=== PATIENT | male | born 1985 | race Caucasian/White ===

== ENCOUNTER 2018-04-01 23:38 | Inpatient (IN) | payer SELFPAY ==
[2018-04-01 23:45] VITALS: BMI 33.9
[2018-04-02] MEDS ORDERED: ONDANSETRON 4 MG/2 ML VIAL IVPUSH ONE (00:01)
[2018-04-02] MEDS ORDERED: morphine CARPU-JECT 4 MG/1 ML DISP.SYRIN IVPUSH ONE (00:07)
[2018-04-02] MEDS ORDERED: SODIUM CHLORIDE 1,000 ML IV STA (00:08)
--- NOTE | 2018-04-02 00:08 | PDOC ---
Attending Attestation - HPI HPI: 04/02/18 00:41 The patient is a 32 year old male with a past medical history of kidney stone ( 8 years ago) who presents to the emergency department for evaluation of abdominal pain. The patient reports a 3 day history left lower quadrant abdominal pain. He describes the pain as intermittent and moderate in nature. Pt reports associated symptoms of fever, nausea, and vomiting. Of note, the patient states the pain feels reminiscent of prior kidney stone pain prompting him to visit our facility for further evaluation. The patient denies history of abdominal surgery, chest pain, shortness of breath , and headache. Denies chills, diarrhea, and constipation. Denies urinary urgency/frequency, dysuria, and hematuria. Allergies: NKDA Social History: Former smoker. No reported alcohol or drug use. Surgical History: Denies. <HankrashaadTravis - Last Filed: 04/02/18 00:41> - Resident Resident Name: Serafin Ashby - ED Attending Attestation I have performed the following: I have examined & evaluated the patient, The case was reviewed & discussed with the resident, I agree w/resident's findings & plan, Exceptions are as noted - Physicial Exam PE: 04/02/18 02:30 Physical Exam General Appearance: Yes: Appropriately Dressed. No: Apparent Distress, Intoxicated HEENT: positive: EOMI, THEODORE, Normal ENT Inspection, Normal Voice, TMs Normal, Pharynx Normal. negative: Pale Conjunctivae, Photophobia, Scleral Icterus (R), Scleral Icterus (L) Neck: positive: Trachea midline, Normal Thyroid, Supple. negative: Tender, Rigid, Carotid bruit, Stridor, Lymphadenopathy (R), Lymphadenopathy (L), Thyromegaly Respiratory/Chest: positive: Lungs Clear, Normal Breath Sounds. negative: Chest Tender, Respiratory Distress, Accessory Muscle Use, Labored Respiration, RES, Crackles, Rales, Rhonchi, Stridor, Wheezing, Dullness Cardiovascular: positive: Regular Rhythm, Regular Rate, S1, S2. negative: Edema , JVD, Murmur, Bradycardia, Tachycardia Vascular Pulses: Dorsalis-Pedis (R): 2+, Doralis-Pedis (L): 2+ Gastrointestinal/Abdominal: positive: Normal Bowel Sounds, Flat, Soft. LLQ tenderness negative: Organomegaly, Pulsatile Mass, Increased Bowel Sounds, Decreased BS, Distended, Guarding, Rebound, Hernia, Hepatomegaly, Spleenomegaly Lymphatic: negative: Adenopathy, Tenderness Musculoskeletal: positive: Normal Inspection. negative: CVA Tenderness, Decreased Range of Motion Extremity: positive: Normal Capillary Refill, Normal Inspection, Normal Range of Motion, Pelvis Stable. negative: Tender, Pedal Edema, Swelling, Erythema Integumentary: positive: Normal Color, Dry, Warm. negative: Cyanotic, Erythema , Jaundice, Rash Neurologic: positive: bridge construction inspector II-XII NML intact, Fully Oriented, Alert, Normal Mood/ Affect, Motor Strength 5/5. negative: EOM Palsy, Facial Droop, Sensory Deficit - Medical Decision Making 04/02/18 02:31 Pt to be admitted for further treatment. <Lauro Mcadams - Last Filed: 04/02/18 02:34> Attestations - Attestations Documentation prepared by Travis Brady, acting as medical management trainer for Lauro Mcadams DO. <Travis Brady - Last Filed: 04/02/18 00:41>
[2018-04-02 00:31] LABS: HEMATOCRIT 46.3 % (35.4-49); HEMOGLOBIN 15.5 GM/dL (11.7-16.9); MCH 29.8 pg (25.7-33.7); MCHC 33.4 g/dl (32.0-35.9); MEAN CELL VOLUME 89.1 fl (80-96); MEAN PLT VOLUME 8.7 fl (7.5-11.1); PLATELET COUNT 280 K/MM3 (134-434); RBC 5.19 M/mm3 (4.00-5.60); RDW 14.1 % (11.9-15.9); WHITE BLOOD COUNT 15.5 K/mm3 (4.0-10.0)
--- NOTE | 2018-04-02 00:32 | PDOC ---
History of Present Illness - General Chief Complaint: Pain, Acute Stated Complaint: PAIN, ACUTE Time Seen by Provider: 04/01/18 23:59 History Source: Patient Exam Limitations: No Limitations - History of Present Illness Initial Comments: 04/02/18 00:28 Patient is a 32M with history of nephrolithiasis 8 years ago here today complaining of 3 days of left lower quadrant abdominal pain. He endorses associated fever, vomiting. Denies pain with urination. Denies prior surgical history. He states that this pain is like his prior kidney stone pain. He describes the pain as intermittent and worsening today. Past History - Past Medical History Allergies/Adverse Reactions: Allergies Allergy/AdvReac Type Severity Reaction Status Date / Time No Known Allergies Allergy Verified 04/01/18 23:44 COPD: No - Suicide/Smoking/Psychosocial Hx Smoking History: Former smoker Have you smoked in the past 12 months: No Information on smoking cessation initiated: No Review of Systems - Review of Systems Comments:: 04/02/18 00:32 GENERAL/CONSTITUTIONAL: No fever or chills. No weakness. HEAD, EYES, EARS, NOSE AND THROAT: No change in vision. No sore throat. CARDIOVASCULAR: No chest pain or shortness of breath RESPIRATORY: No cough, wheezing, or hemoptysis. GASTROINTESTINAL: +nausea, vomiting. No diarrhea or constipation. GENITOURINARY: No dysuria, frequency, or change in urination. MUSCULOSKELETAL: No joint or muscle swelling or pain. No neck or back pain. SKIN: No rash NEUROLOGIC: No headache, vertigo, loss of consciousness, or change in strength/ sensation. ENDOCRINE: No increased thirst. No abnormal weight change HEMATOLOGIC/LYMPHATIC: No anemia, easy bleeding, or history of blood clots. ALLERGIC/IMMUNOLOGIC: No hives or skin allergy. *Physical Exam - Vital Signs Last Vital Signs Temp Pulse Resp BP Pulse Ox 99.0 F 72 18 123/61 97 04/01/18 23:42 04/01/18 23:42 04/01/18 23:42 04/01/18 23:42 04/01/18 23:42 - Physical Exam Comments: 04/02/18 00:33 GENERAL: Awake, alert, and fully oriented, holding still in bed HEAD: No signs of trauma, normocephalic, atraumatic EYES: PERRLA, EOMI, sclera anicteric, conjunctiva clear ENT: Auricles normal inspection, hearing grossly normal, nares patent, oropharynx clear without exudates. Moist mucosa NECK: Normal ROM, supple, no lymphadenopathy, JVD, or masses LUNGS: No distress, speaks full sentences, clear to auscultation bilaterally HEART: Regular rate and rhythm, normal S1 and S2, no murmurs, rubs or gallops, peripheral pulses normal and equal bilaterally. ABDOMEN: +suprapubic tenderness, +L CVA tenderness, +LLQ tenderness EXTREMITIES: Normal inspection, Normal range of motion, no edema. No clubbing or cyanosis. NEUROLOGICAL: Cranial nerves II through XII grossly intact. Normal speech, no focal sensorimotor deficits SKIN: Warm, Dry, normal turgor, no rashes or lesions noted. ED Treatment Course - LABORATORY CBC & Chemistry Diagram: 04/02/18 00:23 04/02/18 00:27 - RADIOLOGY Radiology Studies Ordered: Category Date Time Status ABDOMEN & PELVIS CT WITH CONTR [CT] Stat CT Scan 04/02/18 00:26 Ordered Medical Decision Making - Medical Decision Making 04/02/18 00:34 Patient is 32M with history of nephrolithiasis here today complaining of abdominal pain. Vital signs stable and normal. DDx includes, but is not limited to: diverticulitis, nephrolithiasis, pyelo. Will evaluate with abdominal labs and CT abd/pelvis. Will treat with fluids, zofran and morphine. 04/02/18 02:32 Laboratory Tests 04/02/18 04/02/18 04/02/18 00:23 00:27 01:28 WBC 15.5 H Hgb 15.5 Plt Count 280 BUN 15 Creatinine 1.2 Urine Nitrite Negative Ur Leukocyte Esterase Negative CBC shows leukocytosis. CMP reassuring. UA normal. CT shows appendicitis without perforation. Given zosyn, d5LR. Will admit. 04/02/18 02:44 Admitted to [facility] via Dr Romero. 04/02/18 05:39 EKG shows normal sinus rhythm with sinus arrhythmia with rate of 72. No st elevations/depressions. No significant t wave abnormalities. Normal axis. Normal intervals. *DC/Admit/Observation/Transfer Diagnosis at time of Disposition: Appendicitis - Discharge Dispostion Condition at time of disposition: Stable Decision to Admit order: Yes - Referrals - Patient Instructions - Post Discharge Activity
[2018-04-02 00:45] LABS: INR 1.08 (0.82-1.09); PROTHROMBIN TIME (PATIENT) 12.2 SEC (9.7-13.0)
[2018-04-02 00:53] LABS: ALBUMIN 4.3 g/dl (3.4-5.0); ALK PHOS 57 U/L (45-117); ANION GAP 9 (8-16); BILIRUBIN,TOTAL 0.7 mg/dL (0.2-1.0); BLOOD UREA NITROGEN 15 mg/dL (7-18); CALCIUM 8.8 mg/dL (8.5-10.1); CHLORIDE 105 mmol/L (98-107); CO2 27 mmol/L (21-32); CREATININE 1.2 mg/dL (0.7-1.3); GLUCOSE,RANDOM 107 mg/dL (74-106); LIPASE 109 U/L (73-393); POTASSIUM 4.1 mmol/L (3.5-5.1); SGOT/AST 15 U/L (15-37); SGPT/ALT 27 U/L (12-78); SODIUM 141 mmol/L (136-145); TOT PROT 7.7 g/dl (6.4-8.2)
[2018-04-02] MEDS ORDERED: morphine SULFATE 4 MG/ML VIAL ONE (01:00)
[2018-04-02] MEDS ORDERED: ONDANSETRON 4 MG/2 ML VIAL ONE ×2 (01:00→13:17)
[2018-04-02 01:49] LABS: URINE APPEARANCE CLEAR; URINE BILIRUBIN NEGATIVE (<2.0 mg/dL); URINE COLOR YELLOW; URINE GLUCOSE (UA) NEGATIVE (NEGATIVE); URINE KETONE TRACE (NEGATIVE); URINE LEUK ESTERASE NEGATIVE (NEGATIVE); URINE NITRITE NEGATIVE (NEGATIVE); URINE PROTEIN NEGATIVE (NEGATIVE); URINE UROBILINOGEN NEGATIVE mg/dL (0.2-1.0)
[2018-04-02] MEDS ORDERED: DEXTROSE 5%-LACTATED RINGERS 1,000 ML IV SCH (02:45)
--- NOTE | 2018-04-02 03:43 | PN ---
Teaching Attending Note Name of Resident: Michael Mendoza ATTENDING PHYSICIAN STATEMENT I saw and evaluated the patient. I reviewed the resident's note and discussed the case with the resident. I agree with the resident's findings and plan as documented. SUBJECTIVE: Patient is a 32 year old man with a past medical history of kidney stone who presents to the ER complaining of LLQ abdominal pain for 3 days. The pain is intermittent and moderate in nature and associated with fever, nausea, and vomiting. Of note, the patient states the pain feels reminiscent of prior kidney stone pain prompting him to visit our facility for further evaluation. OBJECTIVE: Alert and in mild pain Vital Signs Period Temp Pulse Resp BP Sys/Cox Pulse Ox Last 24 Hr 99.0 F 72 18 123/61 97 HEENT: No Jaundice, eye redness or discharge, PERRLA, EOMI. Normocephalic, atraumatic. External ears are normal and hearing is grossly intact. No nasal discharge. Neck: Supple, nontender. No palpable adenopathy or thyromegaly. No JVD Chest: Good effort. Clear to auscultation and percussion. Heart: Regular. No S3, rub or murmur Abdomen: Not distended, soft, tender lower abdomen; no HSM. No rebound or guarding. Normoactive bowel sounds. Ext: Peripheral pulses intact. No leg edema. Skin: Warm and dry. No petechiae, rash or ecchymosis. Neuro: Alert. Oriented x3. CN 2-12 grossly intact. Sensation grossly intact in all four extremities and DTR are symmetric. Current Medications Generic Name Dose Route Start Last Admin Trade Name Freq PRN Reason Stop Dose Admin Dextrose/Lactated Ringer's 1,000 mls @ 100 mls/hr 04/02/18 02:45 D5-Lr - IV ASDIR PEDRO Abnormal Lab Results 04/02/18 04/02/18 04/02/18 00:23 00:27 01:28 WBC 15.5 H Random Glucose 107 H Urine Ketones Trace H ASSESSMENT AND PLAN: 1. Appendicitis - CT scan of the abdomen shows appendicitis and a small left side kidney stone. Will treat with IV Flagyl 50 mg q 8 hours and Cefazolin 2 gm q 8 hours as well as lactated ringers at 100 ml/hour. Keep him NPO and consult surgery. IV morphine 2 gm q 4 hours PRN for pain control. Upon discharge, will refer to Reed Man to do workup to identify kidney stone disease risk factor. 2. Obesity - Will provide patient all the necessary assistance, counseling and positive reinforcement to facilitate weight loss. Consult engineering program manager. 3. DVT prophylaxis - Heparin 5000u sq tid. 4. Advance directives - Full code
[2018-04-02] MEDS ORDERED: LACTATED RINGERS SOLUTION 1,000 ML IV SCH ×3 (03:45→14:00)
[2018-04-02] MEDS ORDERED: ACETAMINOPHEN 325 MG TABLET (FP) PO PRN (03:45)
[2018-04-02] MEDS ORDERED: MORPHINE SULFATE 2 MG/ML VIAL IVPUSH PRN (03:55)
[2018-04-02] MEDS ORDERED: HEPARIN NA (PORCINE) 5,000 UNITS/ML 1ML VIAL SQ SCH (04:00)
[2018-04-02] MEDS ORDERED: CEFAZOLIN 2 GM/D5W 2 GM/50 ML ML IVPB SCH (04:00)
--- NOTE | 2018-04-02 04:23 | HP ---
CHIEF COMPLAINT: abdominal pain PCP: HISTORY OF PRESENT ILLNESS: 32M w/ PMH of nephrolithiasis 8 years ago, p/w 3 days of LLQ abdominal pain, associated w/ fever, nausea and NBNB vomiting. He states that this pain is similar and reminds him of his prior kidney stone pain. He describes the pain as initially intermittent but worsening today, where it became sharp, constant 9 /10 pain and nothing made it better or worse. Denies any SOB, CP, dysuria, hematuria, blood in stools, diarrhea, sick contacts, changes in diet, or recent travel. Denies prior surgical history. ER course was notable for: (1) zofran, morphine, IV NS and D5LR (2) (3) Recent Travel: none PAST MEDICAL HISTORY: L kidney stone 8 years ago. 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 HEAD: NCAT EYES: PERRLA extraocular movements intact, sclera anicteric, conjunctiva clear. EARS, NOSE, THROAT:nares patent, oropharynx clear without exudates. MMM NECK: Normal range of motion, supple without lymphadenopathy, JVD, or masses. LUNGS: CTAB. No wheezes or crackles. No accessory muscle use. HEART: RRR normal S1 and S2 without murmur, rub or gallop. ABDOMEN: TTP LLQ and RLQ, R>L, +rovsing sign, guarding. Soft, not distended, +BS , no rebound, no masses. No hepatomegaly or splenomegaly. MUSCULOSKELETAL: Normal range of motion at all joints. No bony deformities or tenderness. No CVA tenderness. UPPER EXTREMITIES: 2+ pulses, warm, well-perfused. No cyanosis. No clubbing. No peripheral edema. LOWER EXTREMITIES: 2+ pulses, warm, well-perfused. No calf tenderness. No peripheral edema. NEUROLOGICAL: Cranial nerves II-XII intact. Normal speech. SKIN: Warm, dry, normal turgor, no rashes or lesions noted, normal capillary refill. Laboratory Results - last 24 hr 04/02/18 04/02/18 04/02/18 00:23 00:27 00:27 WBC 15.5 H RBC 5.19 Hgb 15.5 Hct 46.3 MCV 89.1 MCH 29.8 MCHC 33.4 RDW 14.1 Plt Count 280 MPV 8.7 PT with INR 12.20 INR 1.08 Sodium 141 Potassium 4.1 Chloride 105 Carbon Dioxide 27 Anion Gap 9 BUN 15 Creatinine 1.2 Creat Clearance w eGFR > 60 Random Glucose 107 H Calcium 8.8 Total Bilirubin 0.7 AST 15 ALT 27 Alkaline Phosphatase 57 Total Protein 7.7 Albumin 4.3 Lipase 109 Urine Color Urine Appearance Urine pH Ur Specific [place] Urine Protein Urine Glucose (UA) Urine Ketones Urine Blood Urine Nitrite Urine Bilirubin Urine Urobilinogen Ur Leukocyte Esterase 04/02/18 01:28 WBC RBC Hgb Hct MCV MCH MCHC RDW Plt Count MPV PT with INR INR Sodium Potassium Chloride Carbon Dioxide Anion Gap BUN Creatinine Creat Clearance w eGFR Random Glucose Calcium Total Bilirubin AST ALT Alkaline Phosphatase Total Protein Albumin Lipase Urine Color Yellow Urine Appearance Clear Urine pH 6.0 Ur Specific [place] 1.023 Urine Protein Negative Urine Glucose (UA) Negative Urine Ketones Trace H Urine Blood Negative Urine Nitrite Negative Urine Bilirubin Negative Urine Urobilinogen Negative Ur Leukocyte Esterase Negative Ucx - pending CT shows appendicitis without perforation. small L side kidney stone, non- obstructing ASSESSMENT/PLAN: 32M w/ PMH of nephrolithiasis 8 years ago, p/w 3 days of LLQ abdominal pain, associated w/ fever, nausea and NBNB vomiting. On PE was found to be TTP RLQ/LLQ , +rovsing sign, labs sig for leukocytosis. #Acute Appendicitis - CT scan of the abdomen shows appendicitis and a small left side kidney stone. -tx w/ IV Flagyl 500 mg q8h and Cefazolin 2 gm q8h -IV LR 100 ml/hour -Keep him NPO and consult surgery. -IV morphine 2 gm q 4 hours PRN for pain control. -Upon discharge, will refer to Tile Setter to do workup to identify kidney stone disease risk factor. #Obesity - -Will provide patient all the necessary assistance, counseling and positive reinforcement to facilitate weight loss. -Consult automatic punch press operator. #FEN -IV LR 100cc/hr -replete lytes as needed -NPO #DVTppx SQH 5000U tid #Dispo -admit to [facility] -likely will go for surgery mao -Full code Case discussed with attending, Dr. Merida. -Michael Mendoza MD PGY1 Visit type - Emergency Visit Emergency Visit: Yes ED Registration Date: 04/02/18 Care time: The patient presented to the Emergency Department on the above date and was hospitalized for further evaluation of their emergent condition. - New Patient This patient is new to me today: Yes Date on this admission: 04/02/18 - Critical Care Critical Care patient: No Hospitalist Screening - Colonoscopy Questionnaire Colonoscopy Questionnaire: Colonoscopy Questionnaire - Patient: 50 - 75 years old and never had a screening colonoscopy: Unknown History of colon or rectal polyps, or CA: Unknown History of IBD, Crohn's disease or UC: Unknown History of abdominal radiation therapy as a child: Unknown - Relative: 1 with colon or rectal CA, or polyps at age 60 or younger: Unknown Colon or rectal CA diagnosed at age 45 or younger: Unknown Multiple relatives with colon or rectal CA: Unknown - Outcome: Screening Result: Negative Screen
[2018-04-02] MEDS ORDERED: HEPARIN NA (PORCINE) 5,000 UNITS/ML 1ML VIAL ONE ×2 (04:50→10:11)
[2018-04-02] MEDS ORDERED: ceFAZolin SODIUM 1 GM VIAL ONE (04:51)
[2018-04-02 05:35] LABS: BASO % 0.6 % (0-2.0); EOS % 0.1 % (0-4.5); HEMATOCRIT 38.6 % (35.4-49); HEMOGLOBIN 13.2 GM/dL (11.7-16.9); MCH 30.5 pg (25.7-33.7); MCHC 34.2 g/dl (32.0-35.9); MEAN CELL VOLUME 89.2 fl (80-96); MEAN PLT VOLUME 8.8 fl (7.5-11.1); MONO % 7.2 % (3.8-10.2); NEUT % 79.1 % (42.8-82.8); PLATELET COUNT 218 K/MM3 (134-434); RBC 4.33 M/mm3 (4.00-5.60); WHITE BLOOD COUNT 14.2 K/mm3 (4.0-10.0)
[2018-04-02 06:03] LABS: INR 1.17 (0.82-1.09); PROTHROMBIN TIME (PATIENT) 13.2 SEC (9.7-13.0)
[2018-04-02] MEDS ORDERED: PIPERACILLIN/TAZOB 4.5 GM 4.5 GM in DEXTROSE 5%-WATER 100 ML IVPB ONE (06:19)
[2018-04-02 06:26] LABS: ALBUMIN 3.6 g/dl (3.4-5.0); ANION GAP 7 (8-16); BLOOD UREA NITROGEN 13 mg/dL (7-18); CHLORIDE 108 mmol/L (98-107); CO2 26 mmol/L (21-32); GLUCOSE,RANDOM 98 mg/dL (74-106); PHOSPHOROUS 3.8 mg/dL (2.5-4.9); POTASSIUM 4.1 mmol/L (3.5-5.1); SODIUM 141 mmol/L (136-145)
[2018-04-02 06:29] LABS: ALK PHOS 48 U/L (45-117); BILIRUBIN,TOTAL 0.8 mg/dL (0.2-1.0); SGOT/AST 9 U/L (15-37); SGPT/ALT 22 U/L (12-78); TOT PROT 6.2 g/dl (6.4-8.2)
[2018-04-02] MEDS ORDERED: PIPERACILLIN/TAZOB 4.5 GM 4.5 GM/100 ML BAG IVPB ONE (06:56)
--- NOTE | 2018-04-02 07:56 | PN ---
Physical Exam: SUBJECTIVE: Patient seen and examined at bedside. Admits to minimal abdominal pain compared to initial presentation. Denies fever/chill, nausea/vomiting. Denies pain during urination or hematuria. Denies c/d or blood in stool. OBJECTIVE: Vital Signs Period Temp Pulse Resp BP Sys/Cox Pulse Ox Last 24 Hr 99.0 F 72 18 123/61 97 GENERAL: NAD. AAOx3. HEENT: NC/AT. Moist mucus membranes. EOMI NECK: Supple, no JVD or LAD. LUNGS: CTA B/L. No wheezes, rhonchi, rales noted. HEART: RRR. Normal S1, S2. No murmurs, rubs, or gallops noted. ABDOMEN: Soft, NT/ND, hypoactive bowel sounds in all 4Q's. No masses or abdominal bruits noted. : (-) CVA tenderness EXTREMITIES: 2+ pulses, warm, well-perfused, no edema. NEUROLOGICAL: CN II-XII intact. PSYCH: Normal mood, normal affect. SKIN: Warm, dry, normal turgor, no rashes or lesions noted Laboratory Results - last 24 hr 04/02/18 04/02/18 04/02/18 00:23 00:27 00:27 WBC 15.5 H RBC 5.19 Hgb 15.5 Hct 46.3 MCV 89.1 MCH 29.8 MCHC 33.4 RDW 14.1 Plt Count 280 MPV 8.7 Absolute Neuts (auto) Neutrophils % Lymphocytes % Monocytes % Eosinophils % Basophils % Nucleated RBC % PT with INR 12.20 INR 1.08 PTT (Actin FS) Sodium 141 Potassium 4.1 Chloride 105 Carbon Dioxide 27 Anion Gap 9 BUN 15 Creatinine 1.2 Creat Clearance w eGFR > 60 Random Glucose 107 H Calcium 8.8 Phosphorus Magnesium Total Bilirubin 0.7 AST 15 ALT 27 Alkaline Phosphatase 57 Total Protein 7.7 Albumin 4.3 Lipase 109 Urine Color Urine Appearance Urine pH Ur Specific [place] Urine Protein Urine Glucose (UA) Urine Ketones Urine Blood Urine Nitrite Urine Bilirubin Urine Urobilinogen Ur Leukocyte Esterase Blood Type Antibody Screen 04/02/18 04/02/18 04/02/18 01:28 05:22 05:22 WBC 14.2 H RBC 4.33 Hgb 13.2 Hct 38.6 D MCV 89.2 MCH 30.5 MCHC 34.2 RDW 14.0 Plt Count 218 D MPV 8.8 Absolute Neuts (auto) 11.3 Neutrophils % 79.1 Lymphocytes % 13.0 Monocytes % 7.2 Eosinophils % 0.1 Basophils % 0.6 Nucleated RBC % 0 PT with INR 13.20 H INR 1.17 H PTT (Actin FS) Sodium Potassium Chloride Carbon Dioxide Anion Gap BUN Creatinine Creat Clearance w eGFR Random Glucose Calcium Phosphorus Magnesium Total Bilirubin AST ALT Alkaline Phosphatase Total Protein Albumin Lipase Urine Color Yellow Urine Appearance Clear Urine pH 6.0 Ur Specific [place] 1.023 Urine Protein Negative Urine Glucose (UA) Negative Urine Ketones Trace H Urine Blood Negative Urine Nitrite Negative Urine Bilirubin Negative Urine Urobilinogen Negative Ur Leukocyte Esterase Negative Blood Type Antibody Screen 04/02/18 04/02/18 04/02/18 05:22 05:22 05:25 WBC RBC Hgb Hct MCV MCH MCHC RDW Plt Count MPV Absolute Neuts (auto) Neutrophils % Lymphocytes % Monocytes % Eosinophils % Basophils % Nucleated RBC % PT with INR INR PTT (Actin FS) 27.3 Sodium 141 Potassium 4.1 Chloride 108 H Carbon Dioxide 26 Anion Gap 7 L BUN 13 Creatinine 1.0 Creat Clearance w eGFR > 60 Random Glucose 98 Calcium 8.0 L Phosphorus 3.8 Magnesium 2.0 Total Bilirubin 0.8 AST 9 L D ALT 22 Alkaline Phosphatase 48 Total Protein 6.2 L Albumin 3.6 Lipase Urine Color Urine Appearance Urine pH Ur Specific [place] Urine Protein Urine Glucose (UA) Urine Ketones Urine Blood Urine Nitrite Urine Bilirubin Urine Urobilinogen Ur Leukocyte Esterase Blood Type A POSITIVE Antibody Screen Negative Active Medications Generic Name Dose Route Start Last Admin Trade Name Freq PRN Reason Stop Dose Admin Heparin Sodium (Porcine) 5,000 unit 04/02/18 04:00 04/02/18 04:11 Heparin - SQ 5,000 unit Q8H-IV PEDRO Administration Lactated Ringer's 1,000 mls @ 125 mls/hr 04/02/18 06:53 Lactated Ringers Solution IV ASDIR PEDRO Morphine Sulfate 2 mg 04/02/18 03:55 Morphine Sulfate IVPUSH Q4H PRN PAIN LEVEL 6-10 Ucx - trace ketones CT shows appendicitis without perforation. small L side kidney stone, non- obstructing ASSESSMENT/PLAN: 32M w/ PMH of nephrolithiasis 8 years ago who presents with 3 days of LLQ abdominal pain, associated w/ fever, nausea and non-bloody, non-bilious vomiting. #Acute Appendicitis - CT scan of the abdomen shows appendicitis and a small left side kidney stone. -cont Zosyn per surgery recs. -IV LR 125 cc/hour -NPO for surgery today -IV morphine 2 gm q 4 hours PRN for pain; pain currently controlled. -Upon discharge, will refer to Construction Electrician to do workup to identify kidney stone disease risk factor. #Obesity; elevated BMI 33 -Counseling for weight loss and dietary recommendations. -Consult senior talent acquisition specialist. #DVT ppx SQH 5000U TID #FEN -IV LR 125cc/hr -replete lytes as needed -NPO #Dispo -ad[facility] -surgery today -Full code Visit type - Emergency Visit Emergency Visit: Yes ED Registration Date: 04/02/18 Care time: The patient presented to the Emergency Department on the above date and was hospitalized for further evaluation of their emergent condition. - New Patient This patient is new to me today: No - Critical Care Critical Care patient: No
--- NOTE | 2018-04-02 09:22 | CONSULT ---
Consult Consult Specialty:: General Surgery Referred by:: Dr. Ashby Reason for Consultation:: acute appendicitis - History of Present Illness Chief Complaint: LLQ pain, n/v History of Present Illness: 32yo healthy, obese M with h/o left urolithiasis and no surgical history presents with 2 days of LLQ pain, initially went away overnight, then returned yesterday and was associated with n/v after dinner, prompting ER visit. He also had subjective fever yesterday, denies diarrhea or constipation, last BM yesterday evening, soft. In ER, wbc 15.5 down to 14.2 after hydration, UA with + ketones, CT showed nonobstructing left kidney stone and enlarged appendix with mild surrounding haziness c/w acute appendicitis, no abscess or perforation. He was admitted overnight to hospitalist service; surgery is consulted for OR. He has received Ancef + Flagyl, and then Zosyn. Pain is better after meds. For ER, he was tender in RLQ with referred tenderness from left, but pain was always left of midline. He is seen and examined in ER holding area. 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 denies: Chills Eyes: denies: Blurred Vision, Recent Change in Vision HENT: denies: Difficult Swallowing, Throat Pain Neck: denies: Swollen Glands, Tenderness Cardiovascular: denies: Chest Pain, Palpitations Respiratory: denies: Cough, SOB Gastrointestinal: reports: Abdominal Pain (with hpi), Nausea, Vomiting. denies : Constipation, Diarrhea Genitourinary: denies: Burning, Dysuria, Hematuria Musculoskeletal: denies: Back Pain, Joint Pain, Muscle Pain Integumentary: denies: Change in Color, Rash Neurological: denies: Dizziness, Headache Psychiatric: denies: Anxiety, Depression Physical Exam Vital Signs: Vital Signs Temperature 99.0 F 04/01/18 23:42 Pulse Rate 72 04/01/18 23:42 Respiratory Rate 18 04/01/18 23:42 Blood Pressure 123/61 04/01/18 23:42 O2 Sat by Pulse Oximetry (%) 97 04/01/18 23:42 Constitutional: Yes: No Distress, Calm, Obese Eyes: Yes: Conjunctiva Clear, EOM Intact HENT: Yes: Atraumatic, Normocephalic Neck: Yes: Supple, Trachea Midline Cardiovascular: Yes: Regular Rate and Rhythm. No: Murmur Respiratory: Yes: Regular, CTA Bilaterally Gastrointestinal: Yes: Normal Bowel Sounds, Soft, Abdomen, Obese, Tenderness ( minimal RLQ to deep palpation only, near McBurney's). No: Tenderness, Rebound, Vomiting ...Rectal Exam: Yes: Deferred Renal/: No: CVA Tenderness - Left, CVA Tenderness - Right Musculoskeletal: No: Joint Stiffness, Joint Swelling Extremities: No: Cool, Cyanosis Edema: No Peripheral Pulses WNL: Yes Integumentary: No: Jaundice, Rash Neurological: Yes: Alert, Oriented. No: Unsteady Gait Psychiatric: Yes: Alert, Oriented Labs: CBC, BMP 04/02/18 05:22 04/02/18 05:22 CMP Sodium 141 mmol/L (136-145) 04/02/18 05:22 Potassium 4.1 mmol/L (3.5-5.1) 04/02/18 05:22 Chloride 108 mmol/L (98-107) H 04/02/18 05:22 Carbon Dioxide 26 mmol/L (21-32) 04/02/18 05:22 Anion Gap 7 (8-16) L 04/02/18 05:22 BUN 13 mg/dL (7-18) 04/02/18 05:22 Creatinine 1.0 mg/dL (0.7-1.3) 04/02/18 05:22 Creat Clearance w eGFR > 60 (>60) 04/02/18 05:22 Random Glucose 98 mg/dL (74-106) 04/02/18 05:22 Calcium 8.0 mg/dL (8.5-10.1) L 04/02/18 05:22 Phosphorus 3.8 mg/dL (2.5-4.9) 04/02/18 05:22 Magnesium 2.0 mg/dL (1.8-2.4) 04/02/18 05:22 Total Bilirubin 0.8 mg/dL (0.2-1.0) 04/02/18 05:22 AST 9 U/L (15-37) L D 04/02/18 05:22 ALT 22 U/L (12-78) 04/02/18 05:22 Alkaline Phosphatase 48 U/L (45-117) 04/02/18 05:22 Total Protein 6.2 g/dl (6.4-8.2) L 04/02/18 05:22 Albumin 3.6 g/dl (3.4-5.0) 04/02/18 05:22 Lipase 109 U/L (73-393) 04/02/18 00:27 INR, PTT INR 1.17 (0.82-1.09) H 04/02/18 05:22 Urine Test Results Urine Color Yellow 04/02/18 01:28 Urine Appearance Clear 04/02/18 01:28 Urine pH 6.0 (5.0-8.0) 04/02/18 01:28 Ur Specific Universal 1.023 (1.001-1.035) 04/02/18 01:28 Urine Protein Negative (NEGATIVE) 04/02/18 01:28 Urine Glucose (UA) Negative (NEGATIVE) 04/02/18 01:28 Urine Ketones Trace (NEGATIVE) H 04/02/18 01:28 Urine Blood Negative (NEGATIVE) 04/02/18 01:28 Urine Nitrite Negative (NEGATIVE) 04/02/18 01:28 Urine Bilirubin Negative (<2.0 mg/dL) 04/02/18 01:28 Ur Leukocyte Esterase Negative (NEGATIVE) 04/02/18 01:28 Imaging - Results Cat Scan: Report Reviewed, Image Reviewed (images personally reviewed - appendix enlarged with mild surrounding inflammatory changes, no free fluid or air, no abscess) Problem List - Problems (1) Appendicitis Assessment/Plan: admitted to hospitalist service by ER NPO/IVF - generous IV hydration IV antibiotics started - ID to continue Zosyn DVT prophylaxis pain meds prn - encourage nonnarcotics Discussed with patient risks, benefits and alternatives of laparoscopic possible open appendectomy, including but not limited to bleeding, infection, injury to adjacent structures, intestinal leak or injury, intraabdominal abscess , hernia, need for further procedures, ; alternatives include antibiotics, delayed or no surgery - risks of this include failure of nonoperative therapy, perforation, sepsis, recurrence, . Patient desires to proceed with operation - will take to OR for above. Informed consent signed for same. anticipate resumption of po postoperatively d/c home when ambulating, voiding, tolerating diet, on oral pain meds (Tyl/ ibuprofen +/- oxycodone/Percocet) Code(s): K37 - UNSPECIFIED APPENDICITIS Qualifiers: Appendicitis type: acute appendicitis Acute appendicitis type: unspecified acute appendicitis type Qualified Code(s): K35.80 - Unspecified acute appendicitis (2) LLQ pain Code(s): R10.32 - LEFT LOWER QUADRANT PAIN (3) Obesity Code(s): E66.9 - OBESITY, UNSPECIFIED Qualifiers: Obesity type: due to excess calories Obesity classification: adult class 1 (BMI 30 - 34.9) Serious obesity comorbidity presence: without serious comorbidity Body mass index: BMI 33.0-33.9 Qualified Code(s): E66.09 - Other obesity due to excess calories; Z68.33 - Body mass index (BMI) 33.0-33.9, adult (4) Renal calculi Assessment/Plan: nonobstructing left kidney stone present Code(s): N20.0 - CALCULUS OF KIDNEY
[2018-04-02] MEDS ORDERED: BUPIVACAINE HCL/PF 0.5% (5MG/ML) 10 ML VIAL ONE (11:44)
[2018-04-02] MEDS ORDERED: fentaNYL CITRATE 250 MCG/5 ML VIAL ONE (11:56)
[2018-04-02] MEDS ORDERED: PROPOFOL 20 ML ONE ×2 (11:56)
[2018-04-02] MEDS ORDERED: ROCURONIUM BROMIDE 50 MG/5 ML VIAL ONE (11:57)
[2018-04-02] MEDS ORDERED: MIDAZOLAM HCL 2 MG/2 ML SINGLE DOSE VIAL ONE (11:57)
[2018-04-02] MEDS ORDERED: LIDOCAINE HCL/PF 2% SDV 5ML VIAL ONE (12:15)
[2018-04-02] MEDS ORDERED: BUPIVACAINE HCL/PF 0.5% (5MG/ML) 10 ML VIAL IJ ONE (12:19)
[2018-04-02] MEDS ORDERED: CEFOXITIN SODIUM 2 GM IVPB ONE (12:27)
[2018-04-02] MEDS ORDERED: cefOXitin SODIUM 1 GM VIAL (RESTRICTED TO ID) IVPB ONE (12:31)
[2018-04-02] MEDS ORDERED: DEXAMETHASONE SOD PHOSPHATE 4 MG/1 ML VIAL ONE (13:17)
[2018-04-02] MEDS ORDERED: NEOSTIGMINE METHYLSULFATE 0.5 MG/ML - 10 ML MDV ONE (13:18)
[2018-04-02] MEDS ORDERED: GLYCOPYRROLATE 0.2 MG/1 ML VIAL ONE (13:28)
--- NOTE | 2018-04-02 13:40 | OP ---
Operative Note - Note: Operative Date: 04/02/18 Pre-Operative Diagnosis: acute appendicitis Operation: laparoscopic appendectomy Findings: inflamed appendix Post-Operative Diagnosis: Same as Pre-op Surgeon: Glenn Vu Agricultural [employer] Specialist: Rossi Kerr Anesthesiologist/WATER PURIFIER OPERATOR: Mckenzie Schwartz Anesthesia: General, Local (20ml 0.5% marcaine) Specimens Removed: appendix to pathology Estimated Blood Loss (mls): 5 Drains, Volume Out (mls): 150 (UOP (Granger removed)) Fluid Volume Replaced (mls): 1,200 (crystalloid) Operative Report Dictated: Yes
[2018-04-02] MEDS ORDERED: ONDANSETRON 4 MG/2 ML VIAL IVPUSH PRN (13:48)
--- NOTE | 2018-04-02 14:23 | EKG ---
Test Reason : Blood Pressure : / mmHG Vent. Rate : 085 BPM Atrial Rate : 085 BPM P-R Int : 142 ms QRS Dur : 082 ms QT Int : 386 ms P-R-T Axes : 085 079 077 degrees QTc Int : 459 ms NORMAL SINUS RHYTHM NORMAL ECG NO PREVIOUS ECGS AVAILABLE Confirmed by TIFFANIE OSWALD MD ([id number]) on 04/02/2018 2:23:34 PM Referred By: PADMINI SUH Confirmed By:TIFFANIE OSWALD MD
--- NOTE | 2018-04-02 14:39 | OP ---
DATE OF OPERATION: 04/02/2018 PREOPERATIVE DIAGNOSIS: Acute appendicitis. POSTOPERATIVE DIAGNOSIS: Acute appendicitis. PROCEDURE: Laparoscopic appendectomy. SURGEON: Glenn Vu MD SKIN PILER: KISHOR BarronIII ANESTHESIA: General endotracheal and local; 20 mL of 0.5% Marcaine. ESTIMATED BLOOD LOSS: 5 mL FLUIDS: Crystalloid 1200 mL. URINE OUTPUT: 150 mL SPECIMEN: Appendix to Pathology. FINDINGS: An inflamed appendix. No fluid in the pelvis. DISPOSITION: Stable and extubated to PACU. INDICATIONS FOR PROCEDURE: Patient is a 32-year-old obese male with a history of kidney stones and no surgical history, who presented with 2 days of left lower quadrant pain which initially had gone away and then returned, associated with nausea and vomiting. In the emergency room, he was afebrile with a white count of 15.5 initially, and a CT showing an enlarged appendix with mild surrounding inflammatory changes consistent with acute appendicitis without abscess. He was admitted overnight to the hospitalist's service, started on antibiotics and IV fluids, and kept n.p.o. Initially, he was apparently tender in the right lower quadrant, but by the time he was seen by Surgery, his pain and tenderness were much improved, and his white count had only dropped to 14.2. Risks, benefits, and alternatives of laparoscopic, possible open appendectomy were discussed with the patient including, but not limited to, bleeding, infection, injury to adjacent structures, intestinal leak or injury, hernia, intra-abdominal abscess, need for further procedures were discussed. Alternatives were also discussed, inclusive of antibiotics and delayed or no surgery with attendant risks of failure of nonoperative therapy, perforation, sepsis, recurrence, and . The patient is agreeable to proceed with the operation, and informed consent has been signed. He is now brought to the operating room for this procedure. OPERATIVE TECHNIQUE: The patient was brought to the operating room and laid supine on the operating table. Sequential compression devices were applied to bilateral lower extremities, and 2 g of cefoxitin were given immediately prior to surgery as his previous dose of Zosyn had only been given 4-5 hours earlier and Ancef and Flagyl prior to that. After induction and intubation by Anesthesia, a Granger catheter was placed in the patient's bladder, which was removed at the end of the case. His abdomen had been clipped of hair in the holding area prior to entry into the operating area, and his abdomen was prepped and draped in sterile fashion. A small infraumbilical midline incision was made with a scalpel and carried into subcutaneous tissues with electrocautery until the abdominal wall fascia was identified, scored, and elevated with Willi clamps. The peritoneum was entered bluntly with the tip of a clamp and a fingertip inserted to ensure entry into the abdominal cavity and the absence of any underlying adhesions. A stay suture of 0 Vicryl was then placed in the fascia in figure-of-8 fashion for later closure, and a Tera trocar was introduced directly into the abdominal cavity and secured in place with the balloon. The abdomen was insufflated with carbon dioxide. Patient was placed in Trendelenburg position with the right side planed upward and the laparoscope inserted to inspect the abdominal cavity. Two additional 5-mm ports were placed under direct vision in the left lower quadrant and suprapubic areas. The camera was switched to the left lower quadrant port, and 2 graspers introduced through the other ports and used to gently manipulate the small bowel medially, exposing the cecum and the inflamed appendix. The distal half of the appendix had injected mucosa. It appeared more normal toward the base. A grasper was used to elevate the appendix while a [place] dissector was used to create a window at the base of the appendix where it joined the cecum, and a 45 purple load of the Endo DANIS stapler was inserted and used to transect the appendiceal base. The staple line was noted to be completely hemostatic. The mesoappendix was then gently and bluntly a bit from the adjacent mesentery of the small bowel, grasped and elevated for a 60 white load of the Endo DANIS stapler to be inserted and used to transect the first portion of the mesoappendix. It took a second white load of a 45 length to complete the transection. After which, the appendix was set aside momentarily in the right lower quadrant. Both staple lines were again inspected and noted to have no active bleeding. The pelvis was inspected for any fluid, and there was none noted to be present. Suction electrical wirer was then used to suction some bloody fluid from around the operative site only. No irrigation was undertaken. The appendix was then placed in an Endo Catch bag and retrieved from the umbilical port site. Patient was returned to neutral position. The suprapubic port was removed under direct vision and then the camera and left lower quadrant port were also removed and the abdomen exsufflated of carbon dioxide. The appendix was passed off for a pathology specimen. The fascia was closed at the umbilicus with the stay suture. Hemostasis was achieved in the port sites with electrocautery where needed, and local anesthetic was infiltrated into all 3 sites. Skin was then closed with 4-0 Vicryl subcuticular sutures including a running at the umbilicus. Benzoin and Steri-Strips were applied to the incisions and covered with dressings of gauze and Tegaderm. The Granger catheter was removed from the patient's bladder at the end of the case. Counts were correct at the end of the procedure. The patient was then awakened and extubated by Anesthesia. He was moved back to a stretcher and brought to the recovery room in stable condition, having tolerated the procedure well. Glenn Vu M.D. [id number]
[2018-04-02] MEDS ORDERED: ACETAMINOPHEN 325 MG TABLET (FP) PO SCH (15:00)
--- NOTE | 2018-04-02 15:03 | DS ---
Physical Exam: SUBJECTIVE: Patient seen and examined with no acute complaints. OBJECTIVE: Vital Signs Period Temp Pulse Resp BP Sys/Cox Pulse Ox Last 24 Hr 98.2 F-99.0 F 67-72 18-18 103-123/58-61 97-98 PHYSICAL EXAM GENERAL: AAOx3 HEENT: EOMI. Moist mucus membranes. NECK: Normal range of motion, supple without lymphadenopathy, JVD, or masses. LUNGS: CTA B/L. No wheezes, rhonchi, rales noted. HEART: RRR normal S1 and S2 without murmur, rub or gallop. ABDOMEN: Soft, minimal tenderness in RLQ, hypoactive bowel sounds. No masses or bruits noted. : -CVA tenderness MUSCULOSKELETAL: Normal range of motion at all joints. No bony deformities or tenderness. No CVA tenderness. UPPER EXTREMITIES: 2+ pulses, warm, well-perfused. No cyanosis. No clubbing. No peripheral edema. LOWER EXTREMITIES: 2+ pulses, warm, well-perfused. No calf tenderness. No peripheral edema. NEUROLOGICAL: Cranial nerves II-XII intact. Normal speech. SKIN: Warm, dry, normal turgor, no rashes or lesions noted, normal capillary refill. LABS Laboratory Results - last 24 hr 04/02/18 04/02/18 04/02/18 00:23 00:27 00:27 WBC 15.5 H RBC 5.19 Hgb 15.5 Hct 46.3 MCV 89.1 MCH 29.8 MCHC 33.4 RDW 14.1 Plt Count 280 MPV 8.7 Absolute Neuts (auto) Neutrophils % Lymphocytes % Monocytes % Eosinophils % Basophils % Nucleated RBC % PT with INR 12.20 INR 1.08 PTT (Actin FS) Sodium 141 Potassium 4.1 Chloride 105 Carbon Dioxide 27 Anion Gap 9 BUN 15 Creatinine 1.2 Creat Clearance w eGFR > 60 Random Glucose 107 H Calcium 8.8 Phosphorus Magnesium Total Bilirubin 0.7 AST 15 ALT 27 Alkaline Phosphatase 57 Total Protein 7.7 Albumin 4.3 Lipase 109 Urine Color Urine Appearance Urine pH Ur Specific [place] Urine Protein Urine Glucose (UA) Urine Ketones Urine Blood Urine Nitrite Urine Bilirubin Urine Urobilinogen Ur Leukocyte Esterase Blood Type Antibody Screen 04/02/18 04/02/18 04/02/18 01:28 05:22 05:22 WBC 14.2 H RBC 4.33 Hgb 13.2 Hct 38.6 D MCV 89.2 MCH 30.5 MCHC 34.2 RDW 14.0 Plt Count 218 D MPV 8.8 Absolute Neuts (auto) 11.3 Neutrophils % 79.1 Lymphocytes % 13.0 Monocytes % 7.2 Eosinophils % 0.1 Basophils % 0.6 Nucleated RBC % 0 PT with INR 13.20 H INR 1.17 H PTT (Actin FS) Sodium Potassium Chloride Carbon Dioxide Anion Gap BUN Creatinine Creat Clearance w eGFR Random Glucose Calcium Phosphorus Magnesium Total Bilirubin AST ALT Alkaline Phosphatase Total Protein Albumin Lipase Urine Color Yellow Urine Appearance Clear Urine pH 6.0 Ur Specific [place] 1.023 Urine Protein Negative Urine Glucose (UA) Negative Urine Ketones Trace H Urine Blood Negative Urine Nitrite Negative Urine Bilirubin Negative Urine Urobilinogen Negative Ur Leukocyte Esterase Negative Blood Type Antibody Screen 04/02/18 04/02/18 04/02/18 05:22 05:22 05:25 WBC RBC Hgb Hct MCV MCH MCHC RDW Plt Count MPV Absolute Neuts (auto) Neutrophils % Lymphocytes % Monocytes % Eosinophils % Basophils % Nucleated RBC % PT with INR INR PTT (Actin FS) 27.3 Sodium 141 Potassium 4.1 Chloride 108 H Carbon Dioxide 26 Anion Gap 7 L BUN 13 Creatinine 1.0 Creat Clearance w eGFR > 60 Random Glucose 98 Calcium 8.0 L Phosphorus 3.8 Magnesium 2.0 Total Bilirubin 0.8 AST 9 L D ALT 22 Alkaline Phosphatase 48 Total Protein 6.2 L Albumin 3.6 Lipase Urine Color Urine Appearance Urine pH Ur Specific [place] Urine Protein Urine Glucose (UA) Urine Ketones Urine Blood Urine Nitrite Urine Bilirubin Urine Urobilinogen Ur Leukocyte Esterase Blood Type A POSITIVE Antibody Screen Negative 04/02/18 08:55 WBC RBC Hgb Hct MCV MCH MCHC RDW Plt Count MPV Absolute Neuts (auto) Neutrophils % Lymphocytes % Monocytes % Eosinophils % Basophils % Nucleated RBC % PT with INR INR PTT (Actin FS) Sodium Potassium Chloride Carbon Dioxide Anion Gap BUN Creatinine Creat Clearance w eGFR Random Glucose Calcium Phosphorus Magnesium Total Bilirubin AST ALT Alkaline Phosphatase Total Protein Albumin Lipase Urine Color Urine Appearance Urine pH Ur Specific [place] Urine Protein Urine Glucose (UA) Urine Ketones Urine Blood Urine Nitrite Urine Bilirubin Urine Urobilinogen Ur Leukocyte Esterase Blood Type A POSITIVE Antibody Screen HOSPITAL COURSE: 32M w/ pmhx of nephrolithiasis 8 years ago presented with 3 days of LLQ abdominal pain, fever, nausea, and vomiting. In the ED, patient was given Zofran for nausea, morphine for pain, IVf for hydration, and kept NPO. A CT scan was done that showed appendicitis w/o perforation as well as a small non- obstructing L side kidney stone. Surgery was consulted and a laparoscopic appendectomy was performed w/o complications. Pt's symptoms improved and was discharged home the same day with instructions to take Tylenol for pain and outpatient followup with Dr. Vu in 2 weeks. He was also instructed to follow up with his permaculture contractor within 1-2 weeks. Date of Admission:04/02/18 Date of Discharge: 04/02/18 Discharge Summary Reason For Visit: APPENDICITIS Current Active Problems Appendicitis (Acute) LLQ pain (Acute) Obesity (Acute) Renal calculi (Acute) Condition: Stable - Instructions Diet, Activity, Other Instructions: Postoperative instructions: You had a laparoscopic appendectomy on 04/02/[address] Glenn Vu of [facility]. Activity: Resume your usual activities gradually, but no heavy exertion or lifting more than 10-15 pounds for 1 month. Remove dressings 48 hours after surgery; sticky tapes underneath will fall off by themselves. You may shower daily starting then, just pat the incision areas dry. No bath or swimming until skin incisions have healed. Eat lightly at first, but advance to your usual diet as tolerated. Pain: For pain, you may use and alternate Tylenol (acetaminophen) and/or ibuprofen every 6 hours each as needed; this means that you can take one OR the other at 3-hour intervals. If you are prescribed a Tylenol/narcotic combination for severe pain, use it instead of plain Tylenol as needed and switch back when your pain starts decreasing. Do not take more than 3000mg of acetaminophen in a day. Take medications as prescribed or indicated on the labeling. Follow-up: Call Dr. Vu's office at [phone] to make your postop appointment (Friday ~2 weeks after surgery). Clinic is held in the [facility] on the first floor of [facility]. Call the office if you have: * increasing pain not responsive to pain medication * fever of 101F or higher * vomiting * unusual or increasing bleeding or drainage from wounds * increasing redness or swelling at wound sites * inability to urinate Also, see your primary medical doctor within 1-2 weeks. Please follow up with your permaculture contractor within 1-2 weeks. Referrals: Glenn Vu MD [Staff Physician] - 2 Weeks (CALL FOR APPOINTMENT) Disposition: HOME - Home Medications Comprehensive Discharge Medication List: Ambulatory Orders NK [No Known Home Medication] 04/02/18
[2018-04-02] MEDS: ACETAMINOPHEN 325 MG TABLET (FP) PO SCH (15:10)
[2018-04-02] MEDS ORDERED: ACETAMINOPHEN 325 MG TABLET (FP) ONE (15:14)
[2018-04-02] MEDS ORDERED: oxyCODONE HCL 5 MG TABLET PO PRN ×2 (16:30)
--- NOTE | 2018-04-02 16:57 | PN ---
Physical Exam: SUBJECTIVE: Patient seen and examined at bedside. Admits to minimal abdominal pain, but pain controlled. Denies fever/chills, nausea/vomiting, urinary/bowel symptoms. OBJECTIVE: Vital Signs Period Temp Pulse Resp BP Sys/Cox Pulse Ox Last 24 Hr 98.2 F-99.0 F 55-85 14-18 103-143/58-84 97-100 GENERAL: Awake, alert, and fully oriented, in no acute distress. HEENT: NC/AT. EOMI. Moist mucus membranes. LUNGS: CTA B/L. No wheezes, rhonchi, rales noted. HEART: RRR, Normal S1, S2. No murmurs, rubs, gallop noted. ABDOMEN: Soft, not distended, hypoactive bowel sounds, no rebound, no masses. No hepatomegaly or splenomegaly. MUSCULOSKELETAL: Normal range of motion at all joints. No bony deformities or tenderness. No CVA tenderness. UPPER EXTREMITIES: 2+ pulses, warm, well-perfused. No cyanosis. No clubbing. No peripheral edema. LOWER EXTREMITIES: 2+ pulses, warm, well-perfused. No calf tenderness. No peripheral edema. NEUROLOGICAL: Cranial nerves II-XII intact. Normal speech. SKIN: Warm, dry, normal turgor, no rashes or lesions noted, normal capillary refill. Laboratory Results - last 24 hr 04/02/18 04/02/18 04/02/18 00:23 00:27 00:27 WBC 15.5 H RBC 5.19 Hgb 15.5 Hct 46.3 MCV 89.1 MCH 29.8 MCHC 33.4 RDW 14.1 Plt Count 280 MPV 8.7 Absolute Neuts (auto) Neutrophils % Lymphocytes % Monocytes % Eosinophils % Basophils % Nucleated RBC % PT with INR 12.20 INR 1.08 PTT (Actin FS) Sodium 141 Potassium 4.1 Chloride 105 Carbon Dioxide 27 Anion Gap 9 BUN 15 Creatinine 1.2 Creat Clearance w eGFR > 60 Random Glucose 107 H Calcium 8.8 Phosphorus Magnesium Total Bilirubin 0.7 AST 15 ALT 27 Alkaline Phosphatase 57 Total Protein 7.7 Albumin 4.3 Lipase 109 Urine Color Urine Appearance Urine pH Ur Specific [place] Urine Protein Urine Glucose (UA) Urine Ketones Urine Blood Urine Nitrite Urine Bilirubin Urine Urobilinogen Ur Leukocyte Esterase Blood Type Antibody Screen 04/02/18 04/02/18 04/02/18 01:28 05:22 05:22 WBC 14.2 H RBC 4.33 Hgb 13.2 Hct 38.6 D MCV 89.2 MCH 30.5 MCHC 34.2 RDW 14.0 Plt Count 218 D MPV 8.8 Absolute Neuts (auto) 11.3 Neutrophils % 79.1 Lymphocytes % 13.0 Monocytes % 7.2 Eosinophils % 0.1 Basophils % 0.6 Nucleated RBC % 0 PT with INR 13.20 H INR 1.17 H PTT (Actin FS) Sodium Potassium Chloride Carbon Dioxide Anion Gap BUN Creatinine Creat Clearance w eGFR Random Glucose Calcium Phosphorus Magnesium Total Bilirubin AST ALT Alkaline Phosphatase Total Protein Albumin Lipase Urine Color Yellow Urine Appearance Clear Urine pH 6.0 Ur Specific [place] 1.023 Urine Protein Negative Urine Glucose (UA) Negative Urine Ketones Trace H Urine Blood Negative Urine Nitrite Negative Urine Bilirubin Negative Urine Urobilinogen Negative Ur Leukocyte Esterase Negative Blood Type Antibody Screen 04/02/18 04/02/18 04/02/18 05:22 05:22 05:25 WBC RBC Hgb Hct MCV MCH MCHC RDW Plt Count MPV Absolute Neuts (auto) Neutrophils % Lymphocytes % Monocytes % Eosinophils % Basophils % Nucleated RBC % PT with INR INR PTT (Actin FS) 27.3 Sodium 141 Potassium 4.1 Chloride 108 H Carbon Dioxide 26 Anion Gap 7 L BUN 13 Creatinine 1.0 Creat Clearance w eGFR > 60 Random Glucose 98 Calcium 8.0 L Phosphorus 3.8 Magnesium 2.0 Total Bilirubin 0.8 AST 9 L D ALT 22 Alkaline Phosphatase 48 Total Protein 6.2 L Albumin 3.6 Lipase Urine Color Urine Appearance Urine pH Ur Specific [place] Urine Protein Urine Glucose (UA) Urine Ketones Urine Blood Urine Nitrite Urine Bilirubin Urine Urobilinogen Ur Leukocyte Esterase Blood Type A POSITIVE Antibody Screen Negative 04/02/18 08:55 WBC RBC Hgb Hct MCV MCH MCHC RDW Plt Count MPV Absolute Neuts (auto) Neutrophils % Lymphocytes % Monocytes % Eosinophils % Basophils % Nucleated RBC % PT with INR INR PTT (Actin FS) Sodium Potassium Chloride Carbon Dioxide Anion Gap BUN Creatinine Creat Clearance w eGFR Random Glucose Calcium Phosphorus Magnesium Total Bilirubin AST ALT Alkaline Phosphatase Total Protein Albumin Lipase Urine Color Urine Appearance Urine pH Ur Specific [place] Urine Protein Urine Glucose (UA) Urine Ketones Urine Blood Urine Nitrite Urine Bilirubin Urine Urobilinogen Ur Leukocyte Esterase Blood Type A POSITIVE Antibody Screen Active Medications Generic Name Dose Route Start Last Admin Trade Name Freq PRN Reason Stop Dose Admin Acetaminophen 650 mg 04/02/18 21:00 04/02/18 15:10 Tylenol - PO 650 mg Q6H PEDRO Administration Cefoxitin Sodium 2 gm/ 100 mls @ 200 mls/hr 04/02/18 20:30 Dextrose IVPB 04/02/18 20:59 ONCE ONE Protocol Lactated Ringer's 1,000 mls @ 125 mls/hr 04/02/18 15:23 Lactated Ringers Solution IV ASDIR PEDRO Ibuprofen 600 mg 04/02/18 18:00 Motrin - PO Q6H PEDRO Oxycodone HCl 5 mg 04/02/18 16:30 Roxicodone - PO Q6H PRN Pain Level 7 - 10 BREAKTHROUGH U/A - trace ketones CT shows appendicitis without perforation. small L side kidney stone, non- obstructing ASSESSMENT/PLAN: 32M w/ PMH of nephrolithiasis 8 years ago, p/w 3 days of LLQ abdominal pain, associated w/ fever, nausea and NBNB vomiting. On PE was found to be TTP RLQ/LLQ , +rovsing sign, labs significant for leukocytosis. #Acute Appendicitis - CT abd + for appendicitis and small L side kidney stone. Pt has no complaints, afebrile this AM. -IV LR 125 cc/hour -NPO for surgery -IV morphine 2 gm q 4 hours PRN for pain control. -Upon discharge, will refer to [facility] to do workup to identify kidney stone disease risk factor. #High BMI -weight loss and nutrition counseling -f/u dietitian consult #FEN -IV LR 125cc/hr -replete lytes as needed -NPO #DVTppx SQH 5000U tid #Dispo -cont to monitor on medsurg -surgery scheduled for today -Full code Visit type - Emergency Visit Emergency Visit: Yes ED Registration Date: 04/02/18 Care time: The patient presented to the Emergency Department on the above date and was hospitalized for further evaluation of their emergent condition. - New Patient This patient is new to me today: Yes Date on this admission: 04/02/18 - Critical Care Critical Care patient: No
[2018-04-02] MEDS: LACTATED RINGERS SOLUTION 1,000 ML IV SCH ×2 (17:13→21:36)
[2018-04-02] MEDS: IBUPROFEN 600 MG TABLET (FP) PO SCH (17:42)
[2018-04-02] MEDS ORDERED: IBUPROFEN 600 MG TABLET (FP) PO SCH (18:00)
--- NOTE | 2018-04-02 18:37 | CON.ID ---
Consult Consult Specialty:: infectious diseases Referred by:: Reason for Consultation:: abd pain,appendicitis - History of Present Illness Chief Complaint: abd pain History of Present Illness: 32yo healthy, obese M with h/o left urolithiasis was admitted with 2 days of LLQ pain,which initially went away overnight, then returned and was associated with n/v after dinner, prompting ER visit. He also had subjective fever yesterday, denies diarrhea or constipation, last BM yesterday evening, soft. In ER, wbc 15.5 down to 14.2 after hydration, UA with + ketones, patient was worked up in the Er and found to have nonobstructing left kidney stone and enlarged appendix with mild surrounding haziness c/w acute appendicitis patient was admitted and surgery was called for evaluation and patient waas taken to the operating room where he underwent lap appy patient currently post op with pain and bit of drowsiness but otherwise doing well - History Source History Provided By: Patient Limitations to Obtaining History: No Limitations - Past Medical History Renal/: Yes: Renal Calculi - Past Surgical History Past Surgical History: Yes: None - Alcohol/Substance Use Hx Alcohol Use: Yes (social) History of Substance Use: reports: None - Smoking History Smoking history: Former smoker (1ppd x 15 yrs) Have you smoked in the past 12 months: No If you are a former smoker, when did you quit?: 5 months ago - Social History ADL: Independent 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 Home Medications - Allergies Allergies/Adverse Reactions: Allergies Allergy/AdvReac Type Severity Reaction Status Date / Time No Known Allergies Allergy Verified 04/01/18 23:44 - Home Medications Home Medications: Ambulatory Orders NK [No Known Home Medication] 04/02/18 Review of Systems - Review of Systems Constitutional: reports: No Symptoms Eyes: reports: No Symptoms HENT: reports: No Symptoms Neck: reports: No Symptoms Cardiovascular: reports: No Symptoms Respiratory: reports: No Symptoms Gastrointestinal: reports: Abdominal Pain, Nausea Genitourinary: reports: No Symptoms Musculoskeletal: reports: No Symptoms Integumentary: reports: No Symptoms Neurological: reports: No Symptoms Endocrine: reports: No Symptoms Hematology/Lymphatic: reports: No Symptoms Psychiatric: reports: No Symptoms Physical Exam Vital Signs: Vital Signs Temperature 98.2 F 04/02/18 16:55 Pulse Rate 85 04/02/18 16:55 Respiratory Rate 18 04/02/18 16:55 Blood Pressure 110/62 04/02/18 16:55 O2 Sat by Pulse Oximetry (%) 96 04/02/18 16:40 Constitutional: Yes: Calm, Mild Distress, Obese Eyes: Yes: Conjunctiva Clear HENT: Yes: Atraumatic, Normocephalic Neck: Yes: Supple, Trachea Midline Cardiovascular: Yes: Regular Rate and Rhythm Respiratory: Yes: Regular, CTA Bilaterally Gastrointestinal: Yes: Soft, Hypoactive Bowel Sounds Musculoskeletal: Yes: WNL Extremities: Yes: WNL Wound/Incision: Yes: Clean/Dry, Dressing Dry and Intact Neurological: Yes: Alert, Oriented Psychiatric: Yes: Alert, Oriented Labs: CBC, BMP 04/02/18 05:22 04/02/18 05:22 Imaging - Results Chest X-ray: Report Reviewed, Image Reviewed Cat Scan: Report Reviewed, Image Reviewed Assessment/Plan Problem List - Problems (1) Appendicitis Code(s): K37 - UNSPECIFIED APPENDICITIS Qualifiers: Appendicitis type: acute appendicitis Acute appendicitis type: unspecified acute appendicitis type Qualified Code(s): K35.80 - Unspecified acute appendicitis (2) LLQ pain Code(s): R10.32 - LEFT LOWER QUADRANT PAIN (3) Obesity Code(s): E66.9 - OBESITY, UNSPECIFIED Qualifiers: Obesity type: due to excess calories Obesity classification: adult class 1 (BMI 30 - 34.9) Serious obesity comorbidity presence: without serious comorbidity Body mass index: BMI 33.0-33.9 Qualified Code(s): E66.09 - Other obesity due to excess calories; Z68.33 - Body mass index (BMI) 33.0-33.9, adult (4) Renal calculi Code(s): N20.0 - CALCULUS OF KIDNEY plan continue current mgmt abx can be stopped after the next dose rest as per surgical team patient stable
--- NOTE | 2018-04-02 19:47 | PN ---
Teaching Attending Note Name of Resident: Daylin Cruz ATTENDING PHYSICIAN STATEMENT I saw and evaluated the patient. I reviewed the resident's note and discussed the case with the resident. I agree with the resident's findings and plan as documented. SUBJECTIVE: s/p OR , drowsy, seen in [facility] OBJECTIVE: Vital Signs Temperature 97.7 F 04/02/18 18:00 Pulse Rate 88 04/02/18 18:00 Respiratory Rate 20 04/02/18 18:00 Blood Pressure 117/49 04/02/18 18:00 O2 Sat by Pulse Oximetry (%) 96 04/02/18 16:40 CBCD WBC 14.2 K/mm3 (4.0-10.0) H 04/02/18 05:22 RBC 4.33 M/mm3 (4.00-5.60) 04/02/18 05:22 Hgb 13.2 GM/dL (11.7-16.9) 04/02/18 05:22 Hct 38.6 % (35.4-49) D 04/02/18 05:22 MCV 89.2 fl (80-96) 04/02/18 05:22 MCHC 34.2 g/dl (32.0-35.9) 04/02/18 05:22 RDW 14.0 % (11.9-15.9) 04/02/18 05:22 Plt Count 218 K/MM3 (134-434) D 04/02/18 05:22 MPV 8.8 fl (7.5-11.1) 04/02/18 05:22 CMP Sodium 141 mmol/L (136-145) 04/02/18 05:22 Potassium 4.1 mmol/L (3.5-5.1) 04/02/18 05:22 Chloride 108 mmol/L (98-107) H 04/02/18 05:22 Carbon Dioxide 26 mmol/L (21-32) 04/02/18 05:22 Anion Gap 7 (8-16) L 04/02/18 05:22 BUN 13 mg/dL (7-18) 04/02/18 05:22 Creatinine 1.0 mg/dL (0.7-1.3) 04/02/18 05:22 Creat Clearance w eGFR > 60 (>60) 04/02/18 05:22 Random Glucose 98 mg/dL (74-106) 04/02/18 05:22 Calcium 8.0 mg/dL (8.5-10.1) L 04/02/18 05:22 Total Bilirubin 0.8 mg/dL (0.2-1.0) 04/02/18 05:22 AST 9 U/L (15-37) L D 04/02/18 05:22 ALT 22 U/L (12-78) 04/02/18 05:22 Alkaline Phosphatase 48 U/L (45-117) 04/02/18 05:22 Total Protein 6.2 g/dl (6.4-8.2) L 04/02/18 05:22 Albumin 3.6 g/dl (3.4-5.0) 04/02/18 05:22 Current Medications Generic Name Dose Route Start Last Admin Trade Name Freq PRN Reason Stop Dose Admin Acetaminophen 650 mg 04/02/18 21:00 04/02/18 15:10 Tylenol - PO 650 mg Q6H PEDRO Administration Cefoxitin Sodium 2 gm/ 100 mls @ 200 mls/hr 04/02/18 20:30 Dextrose IVPB 04/02/18 20:59 ONCE ONE Protocol Lactated Ringer's 1,000 mls @ 125 mls/hr 04/02/18 15:23 04/02/18 17:13 Lactated Ringers Solution IV Not Given ASDIR PEDRO Ibuprofen 600 mg 04/02/18 18:00 04/02/18 17:42 Motrin - PO 600 mg Q6H PEDRO Administration Oxycodone HCl 5 mg 04/02/18 16:30 Roxicodone - PO Q6H PRN Pain Level 7 - 10 BREAKTHROUGH Home Medications Medication Instructions Recorded NK [No Known Home Medication] 04/02/18 PE: per resident's note U/A - trace ketones CT : suspecious of appendicitis without perforation and abscess. small L side kidney stone, non-obstructing ASSESSMENT/PLAN: Patient is a 32M presented with RLQ pain and was found to have appendicitis. #POD#0 Acute Appendicitis - CT abdomen: appendicitis and small L side kidney stone. on IVF, soft diet as tolerated, advance diet as tolerated Pain meds, IV antibiotic, as per surgeon once tolerates diet then will discharge in am. Discussed with the surgeon in details # Obesity weight loss recommended #DVT ppx: hep. sq
[2018-04-02] MEDS ORDERED: CEFOXITIN SODIUM 2 GM in DEXTROSE 5%-WATER - 100 ML IVPB ONE (20:30)
[2018-04-02] MEDS ORDERED: PT OWN MED DRAWER 7, Y5N ONE (20:39)
[2018-04-03] MEDS: IBUPROFEN 600 MG TABLET (FP) PO SCH ×2 (00:45→05:54)
[2018-04-03] MEDS: ACETAMINOPHEN 325 MG TABLET (FP) PO SCH ×2 (03:10→08:43)
[2018-04-03] MEDS: LACTATED RINGERS SOLUTION 1,000 ML IV SCH (05:56)
[2018-04-03 06:49] LABS: HEMATOCRIT 38.3 % (35.4-49); HEMOGLOBIN 13.1 GM/dL (11.7-16.9); MCH 30.6 pg (25.7-33.7); MCHC 34.2 g/dl (32.0-35.9); MEAN CELL VOLUME 89.3 fl (80-96); MEAN PLT VOLUME 8.6 fl (7.5-11.1); PLATELET COUNT 237 K/MM3 (134-434); RBC 4.29 M/mm3 (4.00-5.60); RDW 13.8 % (11.9-15.9); WHITE BLOOD COUNT 11.7 K/mm3 (4.0-10.0)
[2018-04-03 07:21] LABS: ANION GAP 4 (8-16); BLOOD UREA NITROGEN 15 mg/dL (7-18); CALCIUM 8.5 mg/dL (8.5-10.1); CHLORIDE 105 mmol/L (98-107); CO2 31 mmol/L (21-32); CREATININE 1.1 mg/dL (0.7-1.3); GLUCOSE,RANDOM 107 mg/dL (74-106); POTASSIUM 4.1 mmol/L (3.5-5.1); SODIUM 140 mmol/L (136-145)
--- NOTE | 2018-04-03 07:47 | PN ---
Teaching Attending Note Name of Resident: Daylin Cruz ATTENDING PHYSICIAN STATEMENT I saw and evaluated the patient. I reviewed the resident's note and discussed the case with the resident. I agree with the resident's findings and plan as documented. SUBJECTIVE: Patient feels well, denies having any pain, tolerating diet well. OBJECTIVE: Vital Signs Temperature 98.7 F 04/03/18 05:57 Pulse Rate 68 04/03/18 05:57 Respiratory Rate 20 04/03/18 05:57 Blood Pressure 110/65 04/03/18 05:57 O2 Sat by Pulse Oximetry (%) 96 04/02/18 22:00 CMP Sodium 140 mmol/L (136-145) 04/03/18 06:30 Potassium 4.1 mmol/L (3.5-5.1) 04/03/18 06:30 Chloride 105 mmol/L (98-107) 04/03/18 06:30 Carbon Dioxide 31 mmol/L (21-32) 04/03/18 06:30 Anion Gap 4 (8-16) L 04/03/18 06:30 BUN 15 mg/dL (7-18) 04/03/18 06:30 Creatinine 1.1 mg/dL (0.7-1.3) 04/03/18 06:30 Creat Clearance w eGFR > 60 (>60) 04/03/18 06:30 Random Glucose 107 mg/dL (74-106) H 04/03/18 06:30 Calcium 8.5 mg/dL (8.5-10.1) 04/03/18 06:30 Phosphorus 3.8 mg/dL (2.5-4.9) 04/02/18 05:22 Magnesium 2.0 mg/dL (1.8-2.4) 04/02/18 05:22 Total Bilirubin 0.8 mg/dL (0.2-1.0) 04/02/18 05:22 AST 9 U/L (15-37) L D 04/02/18 05:22 ALT 22 U/L (12-78) 04/02/18 05:22 Alkaline Phosphatase 48 U/L (45-117) 04/02/18 05:22 Total Protein 6.2 g/dl (6.4-8.2) L 04/02/18 05:22 Albumin 3.6 g/dl (3.4-5.0) 04/02/18 05:22 Lipase 109 U/L (73-393) 04/02/18 00:27 Current Medications Generic Name Dose Route Start Last Admin Trade Name Freq PRN Reason Stop Dose Admin Acetaminophen 650 mg 04/02/18 21:00 04/03/18 03:10 Tylenol - PO Not Given Q6H PEDRO Lactated Ringer's 1,000 mls @ 125 mls/hr 04/02/18 15:23 04/03/18 05:56 Lactated Ringers Solution IV 125 mls/hr ASDIR PEDRO Administration Ibuprofen 600 mg 04/02/18 18:00 04/03/18 05:54 Motrin - PO 600 mg Q6H PEDRO Administration Oxycodone HCl 5 mg 04/02/18 16:30 Roxicodone - PO Q6H PRN Pain Level 7 - 10 BREAKTHROUGH Home Medications Medication Instructions Recorded NK [No Known Home Medication] 04/02/18 PE: per resident's note U/A - trace ketones CT : suspecious of appendicitis without perforation and abscess. small L side kidney stone, non-obstructing ASSESSMENT/PLAN: Patient is a 32M presented with RLQ pain and was found to have appendicitis. #POD#1 Acute Appendicitis -s/p Lap.api by dr vu. follow with Dr. Vu in 2 weeks. Instructions are in your discharge summary Ptient will take tylenol /motrin prn. tolerated diet well.will discharge the patient. # Obesity weight loss recommended discharge time 35minutes
--- NOTE | 2018-04-03 10:15 | DS ---
Physical Exam: SUBJECTIVE: Patient seen and examined. No acute complaints overnight. OBJECTIVE: Vital Signs Period Temp Pulse Resp BP Sys/Cox Pulse Ox Last 24 Hr 97.7 F-98.8 F 55-88 14-20 105-143/49-84 96-100 PHYSICAL EXAM GENERAL: Awake, alert, and fully oriented, in no acute distress. HEENT: NC/AT. EOMI. Moist mucus membranes. LUNGS: CTA B/L. No wheezes, rhonchi, rales noted. HEART: RRR, Normal S1, S2. No murmurs, rubs, gallop noted. ABDOMEN: Soft, not distended, hypoactive bowel sounds, no rebound, no masses. No hepatomegaly or splenomegaly. MUSCULOSKELETAL: Normal range of motion at all joints. No bony deformities or tenderness. No CVA tenderness. UPPER EXTREMITIES: 2+ pulses, warm, well-perfused. No cyanosis. No clubbing. No peripheral edema. LOWER EXTREMITIES: 2+ pulses, warm, well-perfused. No calf tenderness. No peripheral edema. NEUROLOGICAL: Cranial nerves II-XII intact. Normal speech. SKIN: Warm, dry, normal turgor, no rashes or lesions noted, normal capillary refill. LABS Laboratory Results - last 24 hr 04/02/18 04/03/18 04/03/18 08:55 06:30 06:30 WBC 11.7 H RBC 4.29 Hgb 13.1 Hct 38.3 MCV 89.3 MCH 30.6 MCHC 34.2 RDW 13.8 Plt Count 237 MPV 8.6 Sodium 140 Potassium 4.1 Chloride 105 Carbon Dioxide 31 Anion Gap 4 L BUN 15 Creatinine 1.1 Creat Clearance w eGFR > 60 Random Glucose 107 H Calcium 8.5 Blood Type A POSITIVE HOSPITAL COURSE: 32M w/ pmhx of nephrolithiasis 8 years ago presented with 3 days of LLQ abdominal pain, fever, nausea, and vomiting. In the ED, patient was given Zofran for nausea, morphine for pain, IVf for hydration, and kept NPO. A CT scan was done that showed appendicitis w/o perforation as well as a small non- obstructing L side kidney stone. Surgery was consulted and a laparoscopic appendectomy was performed w/o complications. The patient was afebrile, tolerating PO diet well, without additional symptoms. He was discharged home the next day with instructions to take Tylenol for pain and outpatient followup with Dr. Vu in 2 weeks. He was also instructed to follow up with his check cashier within 1-2 weeks. Date of Admission:04/02/18 Date of Discharge: 04/03/18 Minutes to complete discharge: 35 Discharge Summary Reason For Visit: APPENDICITIS Current Active Problems Appendicitis (Acute) LLQ pain (Acute) Obesity (Acute) Renal calculi (Acute) Condition: Improved - Instructions Diet, Activity, Other Instructions: Postoperative instructions: You had a laparoscopic appendectomy on 04/02/[address] Glenn Vu of [facility]. Activity: Resume your usual activities gradually, but no heavy exertion or lifting more than 10-15 pounds for 1 month. Remove dressings 48 hours after surgery; sticky tapes underneath will fall off by themselves. You may shower daily starting then, just pat the incision areas dry. No bath or swimming until skin incisions have healed. Eat lightly at first, but advance to your usual diet as tolerated. Pain: For pain, you may use and alternate Tylenol (acetaminophen) and/or ibuprofen every 6 hours each as needed; this means that you can take one OR the other at 3-hour intervals. If you are prescribed a Tylenol/narcotic combination for severe pain, use it instead of plain Tylenol as needed and switch back when your pain starts decreasing. Do not take more than 3000mg of acetaminophen in a day. Take medications as prescribed or indicated on the labeling. Follow-up: Call Dr. Vu's office at [phone] to make your postop appointment (Friday ~2 weeks after surgery). Clinic is held in the [facility] on the first floor of [facility]. Call the office if you have: * increasing pain not responsive to pain medication * fever of 101F or higher * vomiting * unusual or increasing bleeding or drainage from wounds * increasing redness or swelling at wound sites * inability to urinate Also, see your primary medical doctor within 1-2 weeks. Please follow up with your check cashier within 1-2 weeks. Referrals: Glenn Vu MD [Staff Physician] - 2 Weeks (CALL FOR APPOINTMENT) Disposition: HOME - Home Medications Comprehensive Discharge Medication List: Ambulatory Orders NK [No Known Home Medication] 04/02/18 This patient is new to me today: No Emergency Visit: Yes ED Registration Date: 04/02/18 Care time: The patient presented to the Emergency Department on the above date and was hospitalized for further evaluation of their emergent condition. Critical Care patient: No - Discharge Referral Referred to [facility] No
[2018-04-03 10:22] VITALS: BP 105/68; PULSE 93; TEMP 98.2
--- NOTE | 2018-04-03 11:42 | PN ---
Progress Note, Physician History of Present Illness: Pt s/p lap appy for acute appendicitis Doing well on tylenol, ibuprofen. Eaten, voided, passing gas but no BM yet Ready to go home - Current Medication List Current Medications: Active Medications Acetaminophen (Tylenol -) 650 mg PO Q6H [facility] Last Admin: 04/03/18 08:43 Dose: Not Given Lactated Ringer's (Lactated Ringers Solution) 1,000 mls @ 125 mls/hr IV ASDIR [facility] Last Admin: 04/03/18 05:56 Dose: 125 mls/hr Ibuprofen (Motrin -) 600 mg PO Q6H [facility] Last Admin: 04/03/18 05:54 Dose: 600 mg Oxycodone HCl (Roxicodone -) 5 mg PO Q6H PRN PRN Reason: Pain Level 7 - 10 BREAKTHROUGH - Objective Vital Signs: Vital Signs Temperature 98.2 F 04/03/18 09:00 Pulse Rate 93 H 04/03/18 09:00 Respiratory Rate 18 04/03/18 09:00 Blood Pressure 105/68 04/03/18 09:00 O2 Sat by Pulse Oximetry (%) 99 04/03/18 09:00 Constitutional: Yes: No Distress, Calm, Obese Eyes: Yes: Conjunctiva Clear, EOM Intact HENT: Yes: Atraumatic, Normocephalic Gastrointestinal: Yes: Soft, Abdomen, Obese, Other (incisions dressed). No: Tenderness Extremities: No: Cool, Cyanosis Integumentary: Yes: Incision (x3 dressed). No: Jaundice, Rash Wound/Incision: Yes: Steri Strips (under dressings), Dressing Dry and Intact (x3 ). No: Dressing Removed Neurological: Yes: Alert, Oriented Labs: CBC, BMP 04/03/18 06:30 04/03/18 06:30 Problem List - Problems (1) Appendicitis Assessment/Plan: POD1 s/p laparoscopic appendectomy doing well ty diet, voided, passing flatus, ambulating nonnarcotic pain meds prn - Tylenol and ibuprofen at home will f/u in 2 weeks instructions in d/c plan Code(s): K37 - UNSPECIFIED APPENDICITIS Qualifiers: Appendicitis type: acute appendicitis Acute appendicitis type: unspecified acute appendicitis type Qualified Code(s): K35.80 - Unspecified acute appendicitis (2) LLQ pain Code(s): R10.32 - LEFT LOWER QUADRANT PAIN (3) Obesity Code(s): E66.9 - OBESITY, UNSPECIFIED Qualifiers: Obesity type: due to excess calories Obesity classification: adult class 1 (BMI 30 - 34.9) Serious obesity comorbidity presence: without serious comorbidity Body mass index: BMI 33.0-33.9 Qualified Code(s): E66.09 - Other obesity due to excess calories; Z68.33 - Body mass index (BMI) 33.0-33.9, adult (4) Renal calculi Code(s): N20.0 - CALCULUS OF KIDNEY
--- NOTE | 2018-04-03 11:48 | PN ---
Progress Note, Physician History of Present Illness: patient doing well pain now under control no issues site looks good - Current Medication List Current Medications: Active Medications Acetaminophen (Tylenol -) 650 mg PO Q6H [facility] Last Admin: 04/03/18 08:43 Dose: Not Given Lactated Ringer's (Lactated Ringers Solution) 1,000 mls @ 125 mls/hr IV ASDIR [facility] Last Admin: 04/03/18 05:56 Dose: 125 mls/hr Ibuprofen (Motrin -) 600 mg PO Q6H [facility] Last Admin: 04/03/18 05:54 Dose: 600 mg Oxycodone HCl (Roxicodone -) 5 mg PO Q6H PRN PRN Reason: Pain Level 7 - 10 BREAKTHROUGH - Objective Vital Signs: Vital Signs Temperature 98.2 F 04/03/18 09:00 Pulse Rate 93 H 04/03/18 09:00 Respiratory Rate 18 04/03/18 09:00 Blood Pressure 105/68 04/03/18 09:00 O2 Sat by Pulse Oximetry (%) 99 04/03/18 09:00 Constitutional: Yes: No Distress, Calm Cardiovascular: Yes: Regular Rate and Rhythm Respiratory: Yes: Regular, CTA Bilaterally Gastrointestinal: Yes: Normal Bowel Sounds, Soft Musculoskeletal: Yes: WNL Extremities: Yes: WNL Wound/Incision: Yes: Clean/Dry, Dressing Dry and Intact Neurological: Yes: Alert, Oriented Psychiatric: Yes: Alert, Oriented Labs: CBC, BMP 04/03/18 06:30 04/03/18 06:30 INR, PTT INR 1.17 (0.82-1.09) H 04/02/18 05:22 Assessment/Plan Problem List - Problems (1) Appendicitis Code(s): K37 - UNSPECIFIED APPENDICITIS Qualifiers: Appendicitis type: acute appendicitis Acute appendicitis type: unspecified acute appendicitis type Qualified Code(s): K35.80 - Unspecified acute appendicitis (2) LLQ pain Code(s): R10.32 - LEFT LOWER QUADRANT PAIN (3) Obesity Code(s): E66.9 - OBESITY, UNSPECIFIED Qualifiers: Obesity type: due to excess calories Obesity classification: adult class 1 (BMI 30 - 34.9) Serious obesity comorbidity presence: without serious comorbidity Body mass index: BMI 33.0-33.9 Qualified Code(s): E66.09 - Other obesity due to excess calories; Z68.33 - Body mass index (BMI) 33.0-33.9, adult (4) Renal calculi Code(s): N20.0 - CALCULUS OF KIDNEY plan continue current mgmt no abx needed patient stable
--- NOTE | 2018-04-06 17:00 | PATH ---
Surgical Pathology Report Patient Name: ORVILLE MARINO [facility]. Rec. #: [id number] /Age/Gender: 1985 (Age: 32) / M Account: [id number] Location: [address] [place] [address] Taken: 04/02/2018 Received: 04/03/2018 Reported: 04/06/2018 Physicians: Adolph Corrigan M.D. Specimen(s) Received APPENDIX Clinical History Acute appendicitis Final Diagnosis APPENDIX, LAPAROSCOPIC APPENDECTOMY: ACUTE APPENDICITIS AND PERIAPPENDICITIS. Electronically Signed Ashley Gamble M.D. Gross Description Received in formalin, labeled "appendix," is a 6.5 cm. in length vermiform appendix with a stapled margin of resection and moderate attached fat. The serosa is ramesh-somers and smooth. Sectioning reveals a hemorrhagic lumen. The wall of the appendix averages 0.1 cm. in thickness. Plush Cutter sections are submitted in one cassette. 04/03/2018 [facility]04/03/2018
== END 2018-04-03 12:23 | disposition home or self-care (01) | DRG 225 ==
LOC: JER 23:38 → JERBED 04-02 02:45 → UNDOADMIN 04-02 03:00 → JERBED 04-02 03:00 → J6S 04-02 16:27
PROVIDERS: ADMIT Internal Medicine; ATTEND Internal Medicine
PROC: 0DTJ4ZZ Resection of Appendix, Percutaneous Endoscopic Approach (ICD-10-PCS; principal; 2018-04-02 10:30)
DX: K35.80 Unspecified acute appendicitis (principal); N20.0 Calculus of kidney; R10.32 Left lower quadrant pain; Z87.891 Personal history of nicotine dependence; E66.09 Other obesity due to excess calories; Z68.35 Body mass index [BMI] 35.0-35.9, adult; D72.829 Elevated white blood cell count, unspecified
CPT/HCPCS: 36415; 71046-TC-FY; 74177-TC; 80048; 80053; 81003; 83690; 83735; 84100; 85025; 85027; 85610; 85730; 86850; 86900; 86901; 87086; 88304-TC; 93005; 93010; 94010; 94760; 99284-25; J1644; J7030